=== PATIENT | male | born 1960 | race Caucasian/White ===

== ENCOUNTER 2017-06-17 16:50 | Emergency (ER) | payer SELFPAY | END 2017-06-17 18:56 | disposition home or self-care (01) | LOC: D.ER 16:50 | DX: S01.511A Laceration without foreign body of lip, initial encounter (principal); W20.8XXA Other cause of strike by thrown, projected or falling object, initial encounter; Y93.64 Activity, baseball; Y92.830 Public park as the place of occurrence of the external cause ==